=== PATIENT | female | born 1985 | race Caucasian/White ===

== ENCOUNTER → 2019-06-03 13:56 | Outpatient (CLI) | payer BC, SELFPAY ==
[2017-02-14 21:46] VITALS: BMI 30.8
[2019-06-03 16:28] LABS: Chlamydia Trachomatis by PCR Negative (Negative); Neisserai gonorrhoeae by PCR Negative (Negative); Probe Check PASS; Sample Adequacy Control PASS; Specimen Processing Control PASS
== END ==
PROVIDERS: Family Provider Obstetrics & Gynecology; Visit Provider Obstetrics & Gynecology
DX: Z11.3 Encounter for screening for infections with a predominantly sexual mode of transmission (principal)
CPT/HCPCS: 87491; 87591

== ENCOUNTER 2021-10-04 15:44 | Outpatient (CLI) | payer BC, SELFPAY ==
[2021-10-09 11:10] LABS: HPV APTIMA, High Risk Negative (Negative)
== END 2021-10-04 23:59 | disposition short-term general hospital (02) ==
PROVIDERS: Visit Provider Obstetrics & Gynecology
DX: Z12.4 Encounter for screening for malignant neoplasm of cervix (principal); N77.1 Vaginitis, vulvitis and vulvovaginitis in diseases classified elsewhere
CPT/HCPCS: 87624; 88175; G0145